=== PATIENT | female | born 1985 | race Caucasian/White ===

== ENCOUNTER 2017-09-01 10:42 | Emergency (ER) | END 2017-09-01 16:26 | disposition home or self-care (01) ==

== ENCOUNTER 2018-10-28 11:06 | Emergency (ER) | payer BC, MEDICAID ==
[~2018-10-28] VITALS: Ht 167.6 cm; Wt 81.7 kg
[~2018-10-28 11:06] MED LIST: ALBU8.5H8 INH; AZIT250T PO; AZIT250T13 PO; BENZ-6 PO; DICY10CA40 PO; FAMO-96 PO; HYDR-3498 PO; IBUP-1542 PO; PRED50TA PO; PREN-39 PO
[2018-10-28 11:39] VITALS: BP 124/84; PULSE 101; RESP 20; Ht 167.6 cm; Wt 81.7 kg
--- NOTE | 2018-10-28 12:26 | ERD ---
ER Documentation Chief Complaint Chief Complaint Complains of chest pain and chest congestion x3 HPI 33-year-old woman complains of 4 days of cough, sharp nonexertional chest pain mostly associated with cough, chest congestion, fever, body aches. She has had bronchitis in the past requiring oral antibiotics. She denies smoking, no sick contacts, no recent travel, no recent antibiotic use. Patient denies rash, no calf or leg swelling, no vomiting or diarrhea. ROS All systems reviewed and are negative except as per history of present illness. Medications Home Meds Active Scripts Azithromycin* (Zithromax*) 250 Mg Tablet, 250 MG PO .ZPACK DIRECTED, #6 TAB TAKE 500 MG (2 TABS) THE FIRST DAY THEN 250 MG (1 TAB) DAYS 2-5 Prov:CHRIS SANTOS PA-C 12/22/17 Benzonatate* (Tessalon Perle*) 100 Mg Capsule, 100 MG PO Q8H PRN for COUGH, #20 CAP Prov:CHRIS SANTOS PA-C 12/22/17 Ibuprofen* (Motrin*) 600 Mg Tab, 600 MG PO Q6, #30 TAB Prov:CHRIS SANTOS PA-C 12/22/17 Dicyclomine HCl (Dicyclomine HCl) 10 Mg Capsule, 10 MG PO QID for 7 Days, CAP Prov:CEEDAPHNE C 09/01/17 Famotidine* (Pepcid*) 20 Mg Tablet, 20 MG PO BID for 14 Days, TAB Prov:CEE,DAPHNE C 09/01/17 Famotidine* (Pepcid*) 20 Mg Tablet, 20 MG PO BID for 10 Days, TAB Prov:TARIQ GONZALEZ MD 01/21/16 Hydrocodone Bit-Acetaminophen* ([place]*) 5-325 Mg Tab, 1 TAB PO Q6 PRN for PAIN, #14 TAB Prov:TARIQ GONZALEZ MD 01/21/16 Azithromycin* (Azithromycin*) 250 Mg Tablet, 250 MG PO DAILY for z pack, #6 TAB Prov:KEISHA ANDERSON 09/24/15 Prednisone* (Prednisone*) 50 Mg Tablet, 50 MG PO DAILY, #5 TAB Prov:KEISHA ANDERSON 09/24/15 Albuterol Sulfate* (Proair HFA*) 8.5 Gm Hfa.aer.ad, 2 PUFF INH Q4, #1 INHALER Prov:KEISHA ANDERSON 09/24/15 Ibuprofen* (Motrin*) 600 Mg Tab, 600 MG PO Q6H PRN for PAIN AND OR ELEVATED TEMP, #30 Prov:DAVID TODDRakel [employer] 06/03/15 Reported Medications Vits W-Ca,Fe,Fa(<1MG) ( Vitamins) 1 Tab Tablet, 1 TAB PO DAILY 07/08/12 Allergies Allergies: Coded Allergies: No Known Drug Allergies (Verified Allergy, Unknown, 12/22/17) PMhx/Soc Bronchitis Anesthesia Reaction: No Hx Neurological Disorder: No Hx Respiratory Disorders: No Hx Cardiac Disorders: No Hx Psychiatric Problems: No Hx Miscellaneous Medical Probl: No Hx Alcohol Use: No Hx Substance Use: No Hx Tobacco Use: No FmHx Family History: No diabetes Physical Exam Vitals Vital Signs Date Temp Pulse Resp B/P (MAP) Pulse Ox O2 O2 Flow FiO2 Time Delivery Rate 10/28/18 97.0 101 20 124/84 97 11:39 (97) Physical Exam GENERAL: Well-developed, well-nourished, well-hydrated, in no apparent distress, looks nontoxic in appearance HEENT: Moist mucous membranes, positive nasal congestion and rhinorrhea, no cervical spine tenderness or step-off deformities, no goiter, no jaundice or icterus, extraocular movements intact without pain. NEURO: Alert and oriented 3, cranial nerves II through XII intact bilaterally, pupils equal round reactive to light, CARDIAC: Regular rate and rhythm, no murmurs rubs or gallops LUNGS: Clear bilaterally no wheezing crackles or stridor EXTREMITIES: No clubbing cyanosis or edema, calves are bilaterally symmetrical, no Homans sign, no popliteal cord sign. Distal pulses equal and bilateral PSYCH: Normal affect without agitation or irritability Procedures/MDM EKG was performed, read by me revealed a normal sinus rhythm at 76 bpm, normal axis, narrow QRS complex, no concerning ST elevations or depressions noted. Patient was afebrile here and her symptoms appear mild at this time but she has had bronchitis in the past requiring antibiotic therapy so I will discharge her with albuterol pump as needed cough and azithromycin times 5 days. She has had 4 days of symptoms and despite the possibility of influenza positive viral syndrome she will not benefit from oseltamivir therapy For his symptoms I administered ibuprofen 600 mg p.o. x1. Differential diagnoses considered, included but not limited to acute coronary syndrome, pulmonary embolism, aortic dissection, abdominal aortic aneurysm, sepsis, stroke, meningitis, encephalitis, pneumonia, appendicitis, cholecystitis, bowel obstruction, pyelonephritis, nephrolithiasis, cystitis, as well as metabolic, hematologic, and electrolyte abnormalities. As well as abscess, cellulitis, fractures, and dislocations. Patient feels much better at this time, and vital signs are normal, symptoms have improved. I did give strict instructions to return to the ED if symptoms continue or worsen, patient will otherwise follow-up with primary care physician. Patient understood instructions and agreed to plan. Disclaimer: Inadvertent spelling and grammatical errors are likely due to EHR/dictation software use and do not reflect on the overall quality of patient care. Also, please note that the electronic time recorded on this note does not necessarily reflect the actual time of the patient encounter. Departure Diagnosis: Primary Impression: Chest pain Chest pain type: pleurodynia Qualified Codes: R07.81 - Pleurodynia Additional Impression: Bronchitis Condition: Good ANTONIO LLANOS MD Oct 28, 2018 12:26
[2018-10-28] MEDS ORDERED: ALBU8.5H8 INH (12:28)
[2018-10-28] MEDS ORDERED: AZIT250T PO (12:28)
[2018-10-28] MEDS ORDERED: IBUP-1542 PO (12:28)
[2018-10-28] MEDS ORDERED: IBUPROFEN 600 MG TAB PO ONE (12:30)
== END 2018-10-28 13:48 | disposition home or self-care (01) ==
LOC: FTE 11:06
DX: J40 Bronchitis, not specified as acute or chronic (principal)
CPT/HCPCS: 93005; Z7502; Z7610